=== PATIENT | female | born 1970 | race Caucasian/White ===

== ENCOUNTER → 2017-05-21 | Outpatient (CLI) | payer SELFPAY ==
--- NOTE | 2017-05-22 15:12 | US ---
EXAM DESCRIPTION: Soft Tissue,Head/Neck CLINICAL HISTORY: 46 years Female, NECK MASS (RT SUPRACLAVICULAR AREA) COMPARISON: Prior remote CT of the chest March 22, 2015 FINDINGS: In the right supraclavicular region, heterogeneous hypoechoic ill-defined mass in the subcutaneous tissues estimated at 3.9 x 2.0 x 1.8 cm is present. Subcutaneous lipoma is suspected. A soft tissue mass is not apparent. No cystic fluid collection or abnormality is noted. IMPRESSION: Probable lipoma in the right supraclavicular region estimated at approximately 4 x 2 x 1.8 cm. Electronically signed by: Sp Pereyra MD 05/22/2017 3:11 PM CDT
== END | disposition home or self-care (01) ==
LOC: US 13:53
PROVIDERS: ATTEND Family Medicine
DX: D17.1 Benign lipomatous neoplasm of skin and subcutaneous tissue of trunk (principal)

== ENCOUNTER 2017-06-17 07:00 | Day surgery (SDC) | payer OTHER, SELFPAY ==
[2017-06-17] MEDS: LACTATED RINGERS 1,000 ML ONE ×2 (07:20→10:22)
[2017-06-17 07:51] VITALS: O2SAT 100
[2017-06-17] MEDS ORDERED: MIDAZOLAM INJ 2 MG/2 ML VIAL ONE (08:16)
[2017-06-17] MEDS: SODIUM BICARBONATE VIAL 50 MEQ/50 ML VIAL ONE (08:53)
[2017-06-17] MEDS: LIDOCAINE 1% 50 ML VIAL INJ ONE (08:53)
[2017-06-17] MEDS ORDERED: PROPOFOL 200 MG/20 ML VIAL IV ONE ×2 (10:00→11:00)
[2017-06-17] MEDS: HYDROcodone 5MG/APAP 325MG 1 EA TAB ONE (11:00)
--- NOTE | 2017-06-17 11:08 | OP ---
DATE OF PROCEDURE: 06/17/17 PREOPERATIVE DIAGNOSIS: 1. Subcutaneous mass, right neck. POSTOPERATIVE DIAGNOSIS: 1. Subcutaneous mass, right neck, consistent with lipoma. PROCEDURE: 1. Excision, subcutaneous mass, right neck. SURGEON: Riaz Mcgraw MD. CONTOUR BAND SAW OPERATOR VERTICAL: None. ANESTHESIA: Local infiltration of 1% lidocaine with bicarb and IV sedation by Anesthesia. INDICATION: The patient is a 46-year-old female who had a growing mass on her right neck generally in the anterior area. She was brought to the Surgical Suite today for excision after the risks, benefits and alternatives to the procedure were discussed and accepted. FINDINGS: The lesion was deep in the neck, consistent with lipoma. It was taken out piecemeal with attempt to preserve all the vessels and nerves. PROCEDURE: After sedation was obtained, the patient was placed in supine position, prepped and draped in the usual sterile manner. Surgical time-out was taken. A curvilinear incision was then fashioned along the lines in the neck over the lesion. It was infiltrated with local anesthesia and skin was incised with a knife. Dissection was carried down through the skin, subcutaneous tissue and platysma using electrocautery. Dissection was then carried deeper using blunt dissection. Eventually, what appeared to be a fatty lipoma was removed piecemeal, however, since there were multiple vessels in the area, some of which were through the lipoma, so this was dissected as much as possible piecemeal. When this was done, the wound was irrigated copiously with saline. Hemostasis was obtained with pressure. When hemostasis was noted to be adequate and as much of the fatty tissue had been removed, then the platysma was approximated with interrupted 4-0 Vicryl simple sutures and the skin edges were approximated with 4-0 Vicryl subcuticular sutures, benzoin and Steri- Strips. Sterile pressure dressing was applied and the patient was awakened and taken to the Ambulatory Unit in stable condition. Estimated blood loss was 75 to 100 mL. All sponge, needle and instrument counts were correct. #[id number] [facility]
[2017-06-17 11:52] VITALS: BP 139/86; TEMP 99
== END 2017-06-17 12:30 | disposition home or self-care (01) ==
LOC: AMB 07:00
PROVIDERS: ATTEND Surgery
DX: D17.0 Benign lipomatous neoplasm of skin and subcutaneous tissue of head, face and neck (principal); I10 Essential (primary) hypertension; G89.29 Other chronic pain; M54.9 Dorsalgia, unspecified; K21.9 Gastro-esophageal reflux disease without esophagitis; Z79.899 Other long term (current) drug therapy

== ENCOUNTER → 2018-05-21 | Outpatient (CLI) | payer OTHER ==
--- NOTE | 2018-05-21 16:50 | US ---
EXAM DESCRIPTION: Soft Tissue,Head/Neck CLINICAL HISTORY: 47 years, Female, LIPOMA, OTHER SPECIFIED SITE COMPARISON: None. FINDINGS: Sono of the left lateral supraclavicular neck and palpable area of concern shows prominent fat. The supraclavicular fat pad or lipoma might be considered, both with the essentially the same appearance. Area of interest measures 4.6 x 1.7 x 2.9 cm with sono characteristics consistent with fat. At the right base of the neck, lesser fatty changes are seen measured at 3.9 x 2 x 1.8 cm, possibly another lipoma. IMPRESSION: Lipomatous changes in the supraclavicular regions, larger on the left. Electronically signed by: Domenic Montano MD 05/21/2018 4:49 PM CDT
== END ==
LOC: US 13:43
PROVIDERS: ATTEND Family Medicine
DX: D17.79 Benign lipomatous neoplasm of other sites (principal)

== ENCOUNTER 2018-07-17 05:47 | Day surgery (SDC) | payer OTHER ==
[2018-07-17] MEDS ORDERED: LACTATED RINGERS 1,000 ML ONE (07:03)
[2018-07-17] MEDS ORDERED: SODIUM BICARBONATE VIAL 50 MEQ/50 ML VIAL ONE (07:35)
[2018-07-17] MEDS ORDERED: LIDOCAINE 1% 50 ML VIAL INJ ONE (07:35)
[2018-07-17] MEDS ORDERED: fentaNYL CITRATE INJ 50 MCG/ML AMP ONE ×2 (08:15→08:55)
[2018-07-17] MEDS ORDERED: MIDAZOLAM INJ 2 MG/2 ML VIAL ONE ×2 (08:15→08:25)
[2018-07-17] MEDS ORDERED: raNITIdine HCL INJ 25 MG/ML VIAL IV ONE (10:00)
[2018-07-17] MEDS ORDERED: PROPOFOL 200 MG/20 ML VIAL IV ONE (10:00)
[2018-07-17] MEDS ORDERED: LIDOCAINE 1% 10 ML VIAL INJ ONE (10:00)
--- NOTE | 2018-07-17 10:13 | OP ---
DATE OF PROCEDURE: 07/17/18 PREOPERATIVE DIAGNOSIS: 1. Subcutaneous mass, left supraclavicular area. POSTOPERATIVE DIAGNOSIS: 1. Subcutaneous mass, left supraclavicular area. PROCEDURE: 1. Exploration, left supraclavicular area with excision of subcutaneous tissue. SURGEON: Riaz Mcgraw MD. FRACTIONATING STILL OPERATOR: None. ANESTHESIA: Local infiltration of 1% lidocaine with bicarb and IV sedation by Anesthesia. INDICATION: The patient is a 47-year-old female with a history of a subcutaneous mass on the right supraclavicular area that was excised over a year ago. She has developed one on the left. She was brought to the Surgical Suite today for exploration and excision of the same after the risks, benefits and alternatives to the procedure were discussed and accepted. FINDINGS: There was no discrete mass of fat tissue that was discrete from the surrounding tissue. There was no obvious lymphadenopathy or other masses. PROCEDURE: After the patient was marked in the Ambulatory Unit, she was brought to the Surgical Suite and prepped and draped in the usual sterile manner. A surgical time-out was taken. She was sedated. The incision was made, first with a marking pen and then with infiltration of anesthesia. The skin was incised with a sharp knife. Dissection was carried down through the subcutaneous tissue and platysma using electrocautery. The area was then explored with blunt dissection. No discrete mass was identified, so the fatty tissue was explored and removed somewhat with a piecemeal fashion. No discrete large nodes were identified. No other discrete pathology was identified, so the tissue was sent of pathological evaluation. The wound was irrigated with local anesthesia. When hemostasis was noted to be adequate, it was closed in two layers and the subcutaneous tissue reapproximated with interrupted 3-0 Vicryl sutures. Skin edges were approximated with 4-0 Vicryl subcuticular sutures, benzoin and Steri-Strips. Sterile pressure dressing was applied. The patient was awakened and taken to the Ambulatory Unit in stable condition. Estimated blood loss was less than 25 mL. All sponge, needle and instrument counts were correct. #[id number] [facility]
[2018-07-17 11:06] VITALS: BP 122/75; TEMP 97.4; O2SAT 98
== END 2018-07-17 10:45 | disposition home or self-care (01) ==
LOC: AMB 05:47
PROVIDERS: ATTEND Surgery
DX: D17.0 Benign lipomatous neoplasm of skin and subcutaneous tissue of head, face and neck (principal); I10 Essential (primary) hypertension; G89.29 Other chronic pain; M54.9 Dorsalgia, unspecified; Z79.899 Other long term (current) drug therapy
CPT/HCPCS: 00300; 21555; 36415; 81001; 85025; J2250; J2780; J3010; J3490; J7120

== ENCOUNTER → 2020-02-29 | Outpatient (CLI) | payer OTHER ==
--- NOTE | 2020-02-29 17:17 | US ---
EXAM DESCRIPTION: Soft Tissue,Head/Neck: ULTRASOUND. CLINICAL HISTORY: 49 years Female LOCALIZED SWELLING MASS AND LUMP COMPARISON: None Available. TECHNIQUE: Transcutaneous scanning: Polanco-scale and Doppler modes. FINDINGS: Palpable mass anterior and neck. Hypoechoic mass slightly encapsulated similar contrast in the adjacent adipose tissue. Dimensions are 2.5 x 2.1 x 1.0. Nonvascular. Wider than tall orientation with posterior acoustic shadowing. No distinct cyst, no fluid collection, no large calcification. Most likely lipoma. IMPRESSION: Probable lipoma anterior neck subcutaneous tissues. Electronically signed by: Ralph Kline MD 02/29/2020 5:15 PM CDT
== END ==
LOC: US 15:44
PROVIDERS: ATTEND Family Medicine
DX: R22.1 Localized swelling, mass and lump, neck (principal)